=== PATIENT | male | born 1980 | race Native Hawaiian/Other Pacific Islander ===

== ENCOUNTER 2023-11-21 18:32 | Emergency (ER) | payer OTHER ==
[2023-11-21 19:26] VITALS: O2SAT 98
--- NOTE | 2023-11-21 20:18 | ED Physician Documentation ---
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 presents after accidentally getting a needlestick into Left thumb. The patient was administering an insulin pen to the resident and the insulin side of the pen, not to the port to enter the patient's body, Poked patient on the left thumb. He washed it thoroughly at the facility and he was directed over here for evaluation. Patient states the part of the needle that entered the patient did not touch him. He also does not believe he was exposed to any insulin. He feels fine, has no other concerns, and is here for paperwork. PD PAST MEDICAL HISTORY - Past Medical History Past Medical History: No - Past Surgical History Past Surgical History: No - Present Medications Home Medications: Ambulatory Orders Medication Instructions Recorded Confirmed Bictegrav/Emtricit/Tenofov Ala 1 each PO DAILY #28 tablet 11/21/23 [Biktarvy 50-200-25 mg Tablet] - Allergies Allergies/Adverse Reactions: Allergies Allergy/AdvReac Type Severity Reaction Status Date / Time No Known Drug Allergies Allergy Verified 11/21/23 19:18 - Social History Does the pt smoke?: No Smoking Status: Never smoker Does the pt drink ETOH?: No Does the pt have substance abuse?: No - Immunizations Immunizations are current?: Yes - POLST Patient has POLST: No PD ED PE NORMAL - Vitals Vital signs reviewed: Yes - General General: Alert and oriented X 3, No acute distress, Well developed/nourished - Derm Derm: Normal color, Warm and dry, Other (Pinpoint puncture [place] left thumb. No swelling or erythema, no bleeding.) Results - Vitals Vitals: Vital Signs - 24 hr 11/21/23 11/21/23 19:09 20:29 Temperature 36.4 C L 36.6 C Heart Rate 90 79 Respiratory 18 16 Rate Blood Pressure 133/83 H 130/81 H O2 Saturation 98 98 Oxygen O2 Source Room air PD Medical Decision Making - ED course Complexity details: d/w patient ED course: 42-year-old male who presented after left thumb puncture as described in HPI. He was punctured with the opposite side of an insulin pen needle, not the part that entered the patient. He states no known communicable disease in source patient. I discussed the very low risk of disease transmission with this type of puncture, however did after joint decision making offer pt PEP. He would like a prescription for this, but is not sure if he will fill it. I discussed risks vs benefits and pt to consider. If he chooses to start, he can stop if source patient tested and negative. The patient was advised to keep the site clean and otherwise monitor for signs of infection, return if any new concerns. Patient was discharged home in stable condition. Departure - Departure Disposition: 01 Home, Self Care Clinical Impression: Needle stick, hypodermic, accidental Qualifiers: Encounter type: initial encounter Qualified Code(s): W46.0XXA - Contact with hypodermic needle, initial encounter Condition: Good Instructions: ED Wound Puncture General Prescriptions: Bictegrav/Emtricit/Tenofov Ala [Biktarvy 50-200-25 mg Tablet] 1 each PO DAILY #28 tablet Comments: Please keep wound clean and dry. I have given you a paper prescription for postexposure prophylaxis though I think you are extremely low risk. It is up to you whether you would like to use this. Please continue following up with your employer as needed. Forms: PCP List Discharge Date/Time: 11/21/23 20:29
[2023-11-21 20:31] VITALS: BP 130/81
== END 2023-11-21 20:29 | disposition home or self-care (01) ==
LOC: ED 18:32
DX: S61.032A Puncture wound without foreign body of left thumb without damage to nail, initial encounter (principal); W46.1XXA Contact with contaminated hypodermic needle, initial encounter; Y92.099 Unspecified place in other non-institutional residence as the place of occurrence of the external cause; Y99.0 Civilian activity done for income or pay
CPT/HCPCS: 1040M; 99281; 99283